=== PATIENT | male | born 1960 | race Caucasian/White ===

== ENCOUNTER 2016-04-28 14:06 | Emergency (ER) | payer MEDICARE ==
[2016-04-28 17:25] LABS: HEMOGLOBIN 15.6 gm/dl (14.0-17.5); RED BLOOD COUNT 4.9 M/UL (4.20-5.50); WHITE BLOOD COUNT 14.1 K/UL (4.5-11.0)
[2016-04-28 17:59] LABS: BUN/CREATININE RATIO 14 (0-10)
[2016-11-05] MEDS ORDERED: MIDAMOR TAB 5 MG5 MG PO (14:18)
[2016-11-05] MEDS ORDERED: LOPRESSOR 50 MG50 MG PO (14:19)
[2016-11-08] MEDS ORDERED: ASPIRIN CHEWABL81 MG PO (16:02)
[2016-11-08] MEDS ORDERED: ENTRESTO PO (16:05)
[2016-11-08] MEDS ORDERED: ALDACTONE 25MG25 MG PO (16:06)
[2016-11-08] MEDS ORDERED: PROTONIX 40 MG40 M1 PO (16:07)
[2016-11-08] MEDS ORDERED: NITROSTAT 0.40.4 MG SL (16:08)
== END 2016-04-28 20:25 | disposition left against medical advice (07) ==
LOC: ER1 14:06
PROVIDERS: Family Medicine
DX: R06.00 Dyspnea, unspecified (principal); F17.200 Nicotine dependence, unspecified, uncomplicated; Z79.899 Other long term (current) drug therapy
CPT/HCPCS: 36415; 71010; 80053; 82550; 82553; 83874; 83880; 84484; 85025; 93005; 96374; 99285; J2930

== ENCOUNTER → 2020-11-05 | Outpatient (CLI) | payer OTHER ==
[~2020-11-05] MED LIST: AEROCHAMBER1 EA XX; ALDACTONE 25MG25 MG PO; ASPIRIN CHEWABL81 MG PO; ENTRESTO 49 MG1 EACH PO; ENTRESTO 97 MG1 EACH PO; LEVAQUIN750 MG PO; LOPRESSOR 50 MG50 MG PO; METOPROLOL SUCC50 MG PO; MIDAMOR TAB 5 MG5 MG PO; NITROSTAT 0.40.4 MG SL; NORVASC10 MG PO; PREDNISONE20 MG PO; PROAIR HFA8.5 GM INH; PROTONIX 40 MG40 M1 PO; SPIRONOLACTONE25 MG PO; TYLENOL WITH C1 EACH PO; VENTOLIN HFA 66.7 GM INH
== END ==
LOC: ECHO 10:12
DX: I50.22 Chronic systolic (congestive) heart failure (principal); I42.0 Dilated cardiomyopathy; R06.02 Shortness of breath; I08.1 Rheumatic disorders of both mitral and tricuspid valves; I27.20 Pulmonary hypertension, unspecified
CPT/HCPCS: ECHO; 93306